=== PATIENT | female | born 1970 | race Caucasian/White ===

== ENCOUNTER 2017-06-24 19:28 | Emergency (ER) | payer BC ==
[~2017-06-24] VITALS: Ht 170.2 cm; Wt 64.9 kg
[2017-06-24] MEDS ORDERED: EDLUAR10 MG SL (19:41)
[2017-06-24] MEDS ORDERED: NAPROXEN500 MG PO (19:41)
[2017-06-24] MEDS ORDERED: ESTRACE1 MG PO (19:42)
[2017-06-24] MEDS ORDERED: ZOCOR40 MG PO (19:42)
[2017-06-24] MEDS ORDERED: NORCO 7.5-3251 EACH PO (19:43)
[2017-06-24] MEDS ORDERED: PROAIR HFA8.5 GM INH (19:43)
[2017-06-24] MEDS ORDERED: ADVAIR 250-501 EACH INH (19:43)
[2017-06-24] MEDS ORDERED: FISH OIL + D31 EACH PO (19:44)
[2017-06-24] MEDS ORDERED: SINGULAIR10 MG PO (19:44)
== END 2017-06-24 20:51 | disposition home or self-care (01) ==
LOC: ED 19:28
DX: S92.351A Displaced fracture of fifth metatarsal bone, right foot, initial encounter for closed fracture (principal); Z88.8 Allergy status to other drugs, medicaments and biological substances; Z88.5 Allergy status to narcotic agent; Z87.891 Personal history of nicotine dependence; W23.0XXA Caught, crushed, jammed, or pinched between moving objects, initial encounter
CPT/HCPCS: 73630; 99283